=== PATIENT | male | born 1985 | race Caucasian/White ===

== ENCOUNTER 2017-11-06 16:10 | Emergency (ER) | payer BC ==
[~2017-11-06] VITALS: Ht 182.9 cm; Wt 114.0 kg
[~2017-11-06 16:10] MED LIST: OXYC1TAB3 PO
[2017-11-06 16:24] VITALS: BP 172/108; PULSE 89; TEMP 36.8; O2SAT 97; Ht 182.9 cm; Wt 114.0 kg
[2017-11-06] MEDS ORDERED: PENI-82 PO (17:38)
[2017-11-06] MEDS ORDERED: OXYC1TAB3 PO ×2 (17:38→18:41)
--- NOTE | 2017-11-06 19:08 | EMERGENCY ROOM VISIT NOTE ---
History First contact with patient: 17:07 Chief Complaint: DENTAL PAIN Stated Complaint: TOOTH PAIN, RT EAR PAIN, THROAT PAIN Nursing Triage Summary: PT HERE WITH RIGHT UPPER DENTAL PAIN X A FEW WEEKS. PT HAS APPT WITH DENTIST November. PT STATES NEEDS HIS TOOTH REMOVED. History of Present Illness The patient is a 32 year old male who presents to the Emergency Room with complaints of right upper dental pain radiating into the ear. The patient reports that he has had this pain over the past few weeks, worsening over the past few days. She reports a history of dental problems. He is scheduled to have right lower dental extractions performed by Dr. Lopez on 12/10/17. He was unable to schedule an appointment sooner. The patient has not noticed any drainage or foul taste. He denies any difficulty swallowing, and denies any headache, sinus congestion or fever. He rates his discomfort a 9 out of 10. The patient reports that he has health insurance, but does not have dental insurance coverage, and is having difficulty finding a dentist or oral surgeon that will take payments. Review of Systems 10 system review was performed and was negative except for pertinent positives and negatives as indicated in history of present illness Past Medical/Surgical History Medical Problems: (1) Tobacco Use Disorder Surgical Problems: (1) No history of previous surgery Family History No significant family history Social History Smoking Status: Current Every Day Smoker Alcohol Use: occasionally Housing Status: lives with family Occupation Status: employed Current/Historical Medications Scheduled Penicillin V Potassium (Veetids), 500 MG PO QID Scheduled PRN Oxycodone Ir (Roxicodone Ir), 5 MG PO Q4H PRN for Pain Oxycodone Ir (Roxicodone Ir), 1-2 TAB PO Q4H PRN for Pain Physical Exam Vital Signs Date Time Temp Pulse Resp B/P (MAP) Pulse Ox O2 Delivery O2 Flow Rate FiO2 11/06/17 16:24 36.8 89 16 172/108 97 Room Air Physical Exam CONSTITUTIONAL: Healthy and well nourished. Alert and oriented X 3 with positive affect. HEENT: Normocephalic, atraumatic. Pupils equal, round and reactive. No facial edema noted. OROPHARYNX: The patient has poor dentition. He has multiple necrotic and that a decayed right mandibular teeth. Examination shows mild right maxillary gingival erythema around the posterior molars. No fluctuance or pointing. No evidence for Jared's angina or retropharyngeal abscess. NECK: Full active range of motion without discomfort. RESPIRATORY: Clear to auscultation bilaterally with no wheezing, crackles, rhonchi or stridor. CARDIOVASCULAR: Regular rate and rhythm with no murmurs, rubs or gallops. INTEGUMENTARY: No rash or other significant dermatologic conditions noted. NEUROLOGIC: Facial sensations are intact. Medical Decision & Procedures ED Course Patient history and physical exam were performed. Nurse's notes were reviewed. Vital signs were reviewed, showing an elevated blood pressure 172/108. The patient was encouraged to follow-up with his PCP for blood pressure recheck. The [place] Prescription Drug Monitoring Program was reviewed with no concerning red flags. The patient was provided prescriptions for Pen-Vee K and OxyIR 5 mg, dispensed #15 with no refills. The patient was instructed to follow -up with his dentist for definitive care. He may also follow-up with his PCP in the interim until he can have his issue addressed. He was provided additional [facility] contact information round his area. The patient was happy with plan of care, voiced understanding of all discharge instructions, and rated his discomfort a 7 out of 10 at the time of discharge. Medical Decision [place] Drug Monitoring Program Search Results: patient reviewed within database, no issues identified Medication Reconcilliation Current Medication List: was personally reviewed by me Blood Pressure Screening Patient's blood pressure: Elevated blood pressure Blood pressure disposition: Referred to PCP Impression Primary Impression: Pain, dental Additional Impression: Elevated blood pressure reading Departure Information Dispostion Home / Self-Care Condition FAIR Prescriptions Oxycodone Ir (Roxicodone Ir) 5 Mg Tab 1-2 TAB PO Q4H Y for Pain, #15 TAB For Initial Treatment Prov: Orlando Porter PA 11/06/17 Penicillin V Potassium (Veetids) 500 Mg Tab 500 MG PO QID, #40 TAB Prov: Orlando Porter PA 11/06/17 Referrals Joseph Messina ., Crescencio Crump M.D. Forms HOME CARE DOCUMENTATION FORM, IMPORTANT VISIT INFORMATION Patient Instructions My [facility] Additional Instructions Complete all Pen-Vee K antibiotics as prescribed. Ibuprofen 800 mg and/or Tylenol 1000 mg every 8 hours. You may also alternate these medications for more effective pain relief: Ibuprofen --4 HRS--> Tylenol --4 HRS--> ibuprofen --4 HRS--> Tylenol .... OxyIR if needed for worse pain. Do not drink alcohol or drive while taking OxyIR. Follow-up with your dentist for further definitive management. Problem Qualifiers
== END 2017-11-06 18:16 | disposition home or self-care (01) ==
LOC: C.EDB 16:12 → C.EDD 18:16
DX: K08.89 Other specified disorders of teeth and supporting structures (principal); R03.0 Elevated blood-pressure reading, without diagnosis of hypertension; K02.9 Dental caries, unspecified; F17.200 Nicotine dependence, unspecified, uncomplicated